=== PATIENT | male | born 1950 | race Hispanic/Latino ===

== ENCOUNTER 2018-09-01 09:22 | Day surgery (SDC) | payer MEDICARE ==
[2018-08-31 14:35] VITALS: BMI 27.8
[2018-09-01] MEDS ORDERED: Propofol 10 mg/ml Inj (20 ML) ONE ×2 (12:28→12:55)
[2018-09-01 13:33] VITALS: O2SAT 100
[2018-09-01 14:38] VITALS: BP 138/79; PULSE 71; RESP 12; TEMP 97.8
== END 2018-09-01 14:35 | disposition home or self-care (01) ==
LOC: C.ENDO 09:22
PROVIDERS: ATTEND Internal Medicine Gastroenterology
DX: Z12.11 Encounter for screening for malignant neoplasm of colon (principal); D12.2 Benign neoplasm of ascending colon; K64.1 Second degree hemorrhoids
CPT/HCPCS: 45385; 88305; J2704

== ENCOUNTER 2018-09-07 18:40 | Outpatient (CLI) | payer MEDICARE | END 2018-09-07 18:41 | disposition home or self-care (01) | LOC: C.SLEEP 18:41 | DX: G47.33 Obstructive sleep apnea (adult) (pediatric) (principal) ==